=== PATIENT | female | born 1985 ===

== ENCOUNTER 2016-10-20 08:27 | Emergency (ER) | payer OTHER ==
[2016-10-20 09:01] VITALS: O2SAT 100
--- NOTE | 2016-10-20 09:28 | C.PDOC ---
History Of Present Illness 31 year old female presents to the ED with complaints of a rash that was noted around 6pm yesterday. Patient stated she took Benadryl but rash persists today. She notes having a similar episodes 5 years prior- unknown cause. Patient denies tongue swelling, difficulty breathing, or difficulty swallowing. No known allergens. Time Seen by Provider: 10/20/16 08:41 Chief Complaint (Nursing): Allergic Reaction History Per: Patient History/Exam Limitations: no limitations Onset/Duration Of Symptoms: Hrs Current Symptoms Are (Timing): Still Present Associated Symptoms: Skin Rash. denies: Swelling, Trouble Swallowing Home/EMS Treatment: Benadryl Past Medical History Reviewed: Historical Data, Nursing Documentation, Vital Signs Vital Signs: Last Vital Signs Temp 99.2 F 10/20/16 10:39 Pulse 63 10/20/16 10:39 Resp 17 10/20/16 10:39 BP 110/61 10/20/16 10:39 Pulse Ox 100 10/20/16 11:47 Family History: States: Unknown Family Hx - Social History Hx Alcohol Use: Yes Hx Substance Use: No - Immunization History Hx Tetanus Toxoid Vaccination: No Hx Influenza Vaccination: No Hx Pneumococcal Vaccination: No Review Of Systems Constitutional: Negative for: Fever, Chills ENT: Negative for: Ear Pain, Nose Pain, Mouth Swelling, Throat Swelling Cardiovascular: Negative for: Chest Pain Respiratory: Negative for: Shortness of Breath Gastrointestinal: Negative for: Nausea, Vomiting, Abdominal Pain, Diarrhea Skin: Positive for: Rash Physical Exam - Physical Exam Appears: Non-toxic, No Acute Distress Skin: Rash (diffuse urticaria ) Head: Normacephalic, No Tenderness, No Swelling Eye(s): bilateral: PERRL, EOMI Ear(s): Bilateral: Normal Nose: Normal Oral Mucosa: Moist Tongue: Normal Appearing, No Swelling Lips: Normal Appearing, No Swelling Throat: Normal, No Erythema, No Exudate, No Drooling Neck: Normal ROM, Supple Lymphatic: Normal Exam Chest: Symmetrical, No Deformity Cardiovascular: Rhythm Regular Respiratory: Normal Breath Sounds, No Accessory Muscle Use, No Rales, No Rhonchi , No Stridor, No Wheezing Gastrointestinal/Abdominal: Soft, Tenderness (epigastric ) Extremity: Normal ROM, No Tenderness Neurological/Psych: Oriented x3, Normal Speech, Normal Cognition ED Course And Treatment O2 Sat by Pulse Oximetry: 100 Progress Note: upon re-evaluation patient notes itching has improved. patient also notes history of gastritis with epigastric pain. Symptoms are similiar to previous episodes, no vomiting, and requesting medication. Patient was given milk of magnesia and lidocaine. On re-evalaution, pt is sleeping. Upon awakening pt notes she feels comfortable, tolerating PO, has no shortness of breath, has no intra-oral swelling, no stridor, no rash or pruritus. Patient was advised to avoid potential allergens, and to follow up with physician in 1- 2 days. Disposition - Disposition Disposition: HOME/ ROUTINE Disposition Time: 10:52 Condition: STABLE Additional Instructions: Vaya a lee mdico o la clnica en 2-5 britt sin falta, para mas evaluacin. [place]ish[place]m los medicamentos winston indicado. Volver a la primo de emergencia en cualquier momento si los sntomas persisten o empeoran. Prescriptions: DiphenhydrAMINE [Benadryl] 25 mg PO Q6 #20 cap Epinephrine HCl [Epipen Auto-Injector] 0.3 mg IM ONCE PRN #1 unit PRN Reason: Anaphylaxis predniSONE [Prednisone] 40 mg PO DAILY #8 tab Instructions: Urticaria (ED) Print Language: GREENLANDIC - Clinical Impression Clinical Impression: Urticaria - Scribe Statement The provider has reviewed the documentation as recorded by the Scribe Beth Kan All medical record entries made by the Scribe were at my direction and personally dictated by me. I have reviewed the chart and agree that the record accurately reflects my personal performance of the history, physical exam, medical decision making, and the department course for this patient. I have also personally directed, reviewed, and agree with the discharge instructions and disposition.
[2016-10-20] MEDS ORDERED: Magnesium Hydroxide Susp 30 ml UD PO STA (10:24)
[2016-10-20] MEDS ORDERED: Aluminum Hydroxide/Magnesium Hydroxide Susp (30 mL) ONE (10:37)
[2016-10-20 10:41] VITALS: BP 110/61; PULSE 63; RESP 17; TEMP 99.2
== END 2016-10-20 11:39 | disposition home or self-care (01) ==
LOC: C.ER 08:27
DX: L50.9 Urticaria, unspecified (principal)

== ENCOUNTER 2016-10-22 09:40 | Observation (INO) | payer OTHER ==
[2016-10-22 09:45] VITALS: BMI 28.7
[2016-10-22 09:46] VITALS: TEMP 97.3
[2016-10-22] MEDS ORDERED: Sodium Chloride 0.9% 1,000 ML IV ONE (10:02)
[2016-10-22] MEDS ORDERED: DiphenhydrAMINE 50 mg/ml Inj IVP STA (10:03)
--- NOTE | 2016-10-22 10:05 | C.PDOC ---
History Of Present Illness 31 year old female presents to the ED with complaints of a diffuse prurituc rash for 4 days. Patient states she was seen in the ED 3 days ago and given Prednisone, Benadryl, and a prescription for an Epipen. She has been compliant with the Prednisone however she states "the Benadryl is not working" and started taking Rosa D instead, but the symptoms have not improved. Patient reports she cannot afford the Epipen and still feels itchy and notes she felt like her throat was closing up yesterday. She has had similar symptoms 5 years ago but the allergen is unknown. Denies fever, chills, difficulty breathing, nausea, vomiting, or any other complaints at this time. Time Seen by Provider: 10/22/16 09:48 Chief Complaint (Nursing): Abnormal Skin Integrity History Per: Patient History/Exam Limitations: no limitations Onset/Duration Of Symptoms: Days Current Symptoms Are (Timing): Still Present Quality Of Symptoms: Itching Severity: Mild Past Medical History Reviewed: Historical Data, Nursing Documentation, Vital Signs Vital Signs: Last Vital Signs Temp 97.3 F L 10/22/16 09:45 Pulse 71 10/22/16 13:16 Resp 18 10/22/16 13:16 BP 95/46 L 10/22/16 13:16 Pulse Ox 99 10/22/16 13:16 - Medical History PMH: No Chronic Diseases Family History: States: Unknown Family Hx - Social History Hx Alcohol Use: No Hx Substance Use: No - Immunization History Hx Tetanus Toxoid Vaccination: No Hx Influenza Vaccination: No Hx Pneumococcal Vaccination: No Review Of Systems Except As Marked, All Systems Reviewed And Found Negative. ENT: Positive for: Other (+Itchy throat) Skin: Positive for: Rash Physical Exam - Physical Exam Appears: Non-toxic, Other (+mildly uncomfortable) Skin: Warm, Dry, Rash (+Diffuse blanching urticarial rash to the face, back, and chest. No rash to the palms) Head: Atraumatic, Normacephalic Eye(s): bilateral: Normal Inspection Oral Mucosa: Moist Tongue: Normal Appearing, No Swelling Lips: Normal Appearing, No Swelling Throat: Normal, No Erythema, No Drooling Neck: Supple Chest: Symmetrical, No Deformity Cardiovascular: Rhythm Regular, No Murmur Respiratory: Normal Breath Sounds, No Accessory Muscle Use, No Rales, No Rhonchi , No Stridor, No Wheezing Extremity: Normal ROM Neurological/Psych: Oriented x3, Normal Speech, Normal Cognition ED Course And Treatment O2 Sat by Pulse Oximetry: 97 (Room air) Pulse Ox Interpretation: Normal Progress Note: Patient treated with Solu-Medrol, Benadryl, Pepcid, and IV fluids. Patient observed. ED OBSERVATION Date of observation admission: 10/22/16 Time of observation admission: 10:03 - Observation admission statement Patient is being placed in observation because:: Allergic reaction, urticarial rash - Goals of Observation Goals of observation are:: Improvement of symptoms Disposition Counseled Patient/Family Regarding: Diagnosis, Need For Followup, Rx Given - Disposition Disposition: HOME/ ROUTINE Disposition Time: 13:20 Condition: STABLE - POA Present On Arrival: None - Clinical Impression Clinical Impression: Allergic reaction - Scribe Statement The provider has reviewed the documentation as recorded by the Scribe Deep Magdaleno. Provider Attestation: All medical record entries made by the Scribe were at my direction and personally dictated by me. I have reviewed the chart and agree that the record accurately reflects my personal performance of the history, physical exam, medical decision making, and the department course for this patient. I have also personally directed, reviewed, and agree with the discharge instructions and disposition.
[2016-10-22] MEDS ORDERED: Sodium Chloride 0.9% 1,000 ML ONE (10:09)
[2016-10-22] MEDS ORDERED: DiphenhydrAMINE 50 mg/ml Inj ONE (10:09)
[2016-10-22 13:16] VITALS: BP 95/46; PULSE 71; RESP 18
[2016-10-22 13:20] VITALS: O2SAT 97
== END 2016-10-22 13:19 | disposition home or self-care (01) ==
LOC: C.ER 09:40 → C.9OBSV 10:03
PROVIDERS: ADMIT Emergency Medicine; ATTEND Emergency Medicine
DX: T78.40XA Allergy, unspecified, initial encounter (principal); X58.XXXA Exposure to other specified factors, initial encounter; R21 Rash and other nonspecific skin eruption
CPT/HCPCS: 96361; 96374; 96375; 99284; G0378